=== PATIENT | male | born 1995 | race Caucasian/White ===

== ENCOUNTER 2019-10-17 07:44 | Outpatient (CLI) | payer BC, SELFPAY ==
--- NOTE | ~2019-10-17 | MR_ITS ---
EXAMINATION: MR clavicle LT wo con DATE: 10/17/2019 08:53 INDICATION: Left clavicle pain. TECHNIQUE: Magnetic resonance imaging (MRI) of the left clavicle was performed without intravenous co ntrast. Sequences included axial, coronal, and sagittal T1-weighted FSE, axial and coronal T2-weighte d FS FSE, and sagittal STIR FSE. COMPARISON: Left clavicle MRI 12/16/2018, left shoulder radiographs 08/16/2018 FINDINGS: Bone alignment is normal. No fracture. Joint spaces are normal. There is no abnormal soft t issue mass. IMPRESSION: 1. Normal left clavicle. Reviewed, dictated and finalized at location A. IMPRESSION: 1. Normal left clavicle.
== END 2019-10-17 07:45 | disposition home or self-care (01) ==
PROVIDERS: PCP Internal Medicine; Visit Provider Orthopaedic Surgery
DX: M25.512 Pain in left shoulder (principal)
CPT/HCPCS: 73218

== ENCOUNTER 2019-10-24 08:00 | Outpatient (RCR) | payer BC, SELFPAY ==
--- NOTE | 2019-10-24 12:41 | PTOPEVAL ---
Thank you for referring this patient to [facility]. Please review, sign, date and return this plan of care RAVI. I agree with and certify that the following plan of care is medically necessary. Referring Physician Date Admitting Provider: Attending Provider: Rancho Ellison MD Referring Provider: *PT Outpatient Evaluation Start: 10/24/19 08:03 Freq: Status: Active Protocol: Document 10/24/19 08:00 Kena (Rec: 10/24/19 08:56 [facility] [id number]) Therapy Assessment Status Assessment Status Assessment Status Evaluation Evaluation Information Problem Diagnosis L shoulder pain Onset Additional Evaluation Detail quick dash = Subjective Information patient reports he had a Query Text:As Reported By [facility]/ [facility] years [facility]. he reports he ws told to rest for 8 months by his MD. he reports he coming back to skilled PT now to improve his L shoulder strength and functional lifting. he reports he is not having pain, but is looking to regain his normal strength and movement of the L shoulder . 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 he reports he has been off for several months. he reports he would like to get back to lifting ravi. Pain Assessment Timing of Pain Assessment Timing of Pain Assessment Assessment Pain Scale Pain Scale Used Numeric (1 - 10) Self Report Pain Assessment Left Shoulder(s) Reported Pain Level 0 Current Pain Intensity 0 Lowest Pain Intensity 0 Greatest Pain Intensity 0 Pain Score Pain Score 0: Self Report Upper Extremity Range of Motion General Upper Extremity Range of Motion Reason Not Measured WNL/Left,WNL/Right Cervical and Lumbar Muscle Testing Lumbar Strength Lumbar Functional Strength Comments 30 second plank hold, but patient presents with worsening bilateral scapular winging. Upper Extremity Muscle Strength Testing Scapular/Shoulder Bilateral Shoulder Flexion Strength 4 Good Shoulder Extension Strength 5 Normal Shoulder Abduction Strength 5 Normal Shoulder Medial Rotation Strength
== END 2019-10-24 14:31 | disposition home or self-care (01) ==
LOC: CHSPT 08:00
PROVIDERS: PCP Internal Medicine; Visit Provider Orthopaedic Surgery
DX: M75.42 Impingement syndrome of left shoulder (principal)
CPT/HCPCS: 97110; 97161

== ENCOUNTER 2019-12-06 13:06 | Emergency (ER) | payer BC, SELFPAY ==
[2019-12-06] VITALS (7 sets, daily range): BP systolic 100–125; BP diastolic 59–82; PULSE 63–80; RESP 12–18; TEMP 36.4–37.1; O2SAT 97–100
--- NOTE | 2019-12-06 13:24 | ED.ANIMALBIT ---
HPI - Animal Bite General Chief Complaint: Animal Bite Stated Complaint: bit by a snake Time Seen by Provider: 12/06/19 13:24 Source: patient Mode of arrival: ambulatory Limitations: no limitations History of Present Illness HPI narrative: Previously were 24-year-old man comes in today complaining of wound on his right wrist which resembles a snake bite. 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 He did not see a snack today with 2 hours after he was out of the tree he noticed that he had 2 puncture wounds on his radial right forearm with some surrounding erythema. He states he has some mild numbness just distal to the wound on the dorsum of his right hand And felt lightheaded briefly at home, but no other symptoms. he denies fever, shortness of breath, cough, other rash, muscle spasms, joint pain, mental status changes or confusion, headache, nausea, vomiting, difficulty breathing, or bruising. complaint: animal bite Onset (ago): hour(s) (2) Animal: snake Description of animal: wild animal Mechanism: bite Location - Extremities: Right: forearm Context: unprovoked Associated symptoms: numbness Related Data Home Medications Medication Instructions Recorded Confirmed No Home Medications 12/06/19 12/06/19 Allergies Allergy/AdvReac Type Severity Reaction Status Date / Time No Known Allergies Allergy Verified 12/06/19 14:54 Review of Systems Constitutional: Constitutional: Denies chills, Denies fever(s) and Denies weakness Eyes: Eyes: Denies change in vision and Denies photophobia ENT: Denies dysphagia, Denies nasal congestion and Denies sore throat Cardiovascular: Cardiovascular: Denies chest pain, Denies rapid heart rate and Denies radiating jaw, neck or arm pain Respiratory: Respiratory: Denies chest congestion, Denies cough, Denies dyspnea and Denies wheezing Gastrointestinal: Gastrointestinal: Denies abdominal pain, Denies diarrhea, Denies nausea and Denies vomiting Genitourinary: Genitourinary: Denies hematuria, Denies dysuria and Denies urinary frequency Musculoskeletal: Musculoskeletal: Denies back pain, Denies myalgias, Denies arthralgias, Denies joint swelling and Denies muscle cramps Integumentary/Breasts: Skin/Breast: Reports as per HPI, Denies pruritus, Reports erythema and Denies rash Neurologic: Denies confusion, Denies vertigo, Reports dizziness, Denies syncope, Denies headache(s), Denies focal weakness and Denies weakness Psychiatric: Psychiatric: Denies anxiety and Denies depression Endocrine: Endocrine: Denies polydipsia and Denies polyuria Hematologic/Lymphatic: Hematologic/Lymphatic: Denies easy bleeding and Denies easy bruising Allergic/Immunologic: Allergic/Immunologic: Denies lip swelling, Denies throat swelling and Denies tongue swelling [facility] Social History Social History Smoking status: Never smoker Substance use: never Living arrangements: with family Occupation/Education: occupation 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 Exam Const: General: healthy appearing, no acute distress and alert Orientation/consciousness: patient oriented x3 Limitations: no limitations HENMT: Ears: external ears normal, EAC's normal and TM abnormal Mouth: Yes Normal oral and palatal mucosa present and Yes moist mucous membranes Throat: posterior oropharynx normal and uvula midline Eyes: Conjunctivae: conjunctivae normal Pupils: Equal, round and reactive pupils present EOM: EOMs intact bilaterally Resp: Effort & Inspection: normal respiratory effort and not labored Auscultation: clear to auscultation bilaterally, no rales, no rhonchi and no wheezes Cardio: Rate: regular rate Rhythm: regular rhythm Heart sounds: no murmurs GI: Inspection: non-distended GI Palp: Yes Soft to palpation, No Tenderness to palpation present (GI), No Guarding due to palpation
[2019-12-06] MEDS: TETANUS,DIPHTHERIA,AC PERTUSSIS ADULT 0.5 ML (ADACEL) IM (13:45)
[2019-12-06] MEDS: SODIUM CHLORIDE 0.9% IV 1,000 ML 999 ML IV CONT (13:45)
[2019-12-06 13:51] LABS: Add Urine Microscopic? NO; Appearance Urine Clear (Clear); Basophils Absolute Auto 0.05 K/mm3 (0.00-0.10); Basophils Percent Auto 0.7 % (0.0-1.0); Bilirubin Urine Negative (Negative); Blood Urine Negative (Negative); Color Urine Yellow (Yellow); Eosinophils Absolute Auto 0.17 K/mm3 (0.02-0.50); Eosinophils Percent Auto 2.3 % (1.0-6.0); Glucose Urine UA Negative (Negative); Hematocrit 44.9 % (40.0-54.0); Hemoglobin 15.3 g/dL (14.0-18.0); Immature Granulocyte Absolute 0.03 K/mm3 (0.00-0.00); Immature Granulocyte Percent A 0.4 % (0.0-0.0); Ketones Urine Negative (Negative); Leukocyte Esterase Ur Negative (Negative); Lymphocytes Absolute Auto 1.55 K/mm3 (1.10-4.50); Mean Corpuscular HGB Conc 34.1 g/dL (32.0-36.0); Mean Corpuscular Hemoglobin 30.7 pg (27.0-31.0); Mean Corpuscular Volume 90.2 fL (78.0-102.0); Mean Platelet Volume 9.1 fl (8.7-11.0); Monocytes Absolute Auto 0.58 K/mm3 (0.10-0.90); Monocytes Percent Auto 7.8 % (2.0-11.0); Neutrophils Percent Auto 67.8 % (50.0-70.0); Nitrate Urine Negative (Negative); Platelet Count Result 243 K/mm3 (150-420); Protein Urine Negative (Negative); Red Blood Count 4.98 M/mm3 (4.70-6.10); Specific Grav Ur 1.015 (1.010-1.020); Urobilinogen Urine 0.2 mg/dL (0.2-1.0); White Blood Count 7.4 K/mm3 (4.8-10.8)
[2019-12-06 14:03] LABS: Alanine Aminotransferase 36 U/L (16-63); Alkaline Phosphatase 104 U/L (46-116); Anion Gap 10.7 mmol/L (7-16); Aspartate Amino Transferase 28 U/L (15-37); Bilirubin,Total 0.7 mg/dL (0.00-1.00); Blood Urea Nitrogen 14 mg/dL (7-18); Calcium 8.9 mg/dL (8.5-10.1); Carbon Dioxide 32 mmol/L (21-32); Chloride 103 mmol/L (98-108); Creatine Kinase 497 U/L (39-308); D Dimer 0.19 mg/L (0.19-0.50); Estimated CRCL calculation 124 ml/min; Estimated Glomerular Filt Rate > 60; Glucose 74 mg/dL (70-99); Osmolality Calculated 293 mOsm/kg (285-295); Partial Thromboplastin Time 27.2 SEC (22.3-31.6); Potassium 3.7 mmol/L (3.5-5.1); Prothrombin Time 10.3 Seconds (9.64-11.0); Sodium 142 mmol/L (136-145); Total Protein 7.2 g/dL (6.4-8.2)
[2019-12-06] MEDS: ONDANSETRON INJ 4 MG/2 ML VIAL IV PUSH (14:34)
--- NOTE | 2019-12-06 14:51 | PC.NURSE ---
PT TO BE TAKEN TO ROOM 204 BY WHEELCHAIR ER HOLD. TELEPHONE REPORT PROVIDED TO RAINE MATTA.
--- NOTE | 2019-12-06 15:12 | PC.NURSE ---
Patient brought to floor via wheelchair from ER. Alert and [id number] x4. Pleasant and talkative. Potential snake bite site observed. x2 puncture wounds to righrt forearm with small amount of redness aroiund site. Area marked off with marker to monitor for increased redness. Area still within marked area. Rasjh to wrist area. Denies pain at this time. Pateint given ice water, turkey sandwich, and fruit cup.
--- NOTE | 2019-12-06 15:53 | PC.NURSE ---
Area with x2 puncture wounds with redness around the site. Area still within the markings. Denies pain at site. No drainage noted.
--- NOTE | 2019-12-06 15:56 | PC.NURSE ---
1520: Site remains unchanged. Denies pain.
--- NOTE | 2019-12-06 15:57 | PCDIET ---
1540: No changes to site. 2 puncture wounds without drainage. redness remains within the marked line.
--- NOTE | 2019-12-06 16:32 | PC.NURSE ---
1620 Patient resting in bed. Area remains within the marked areas. Wound without drainage.
--- NOTE | 2019-12-06 17:26 | PC.NURSE ---
1700 patient sat up at side of bed for supper. Vitals signs stable. Area to right forearm smaller in size. No longer fills the marked area. Patient denies pain, drainage. Patient alert and oriented x4. Able to make needs known.Denies dizziness, nausea. Call light and belongings in reach.
--- NOTE | 2019-12-06 17:38 | ECG_ITS ---
Measurements Intervals Ballinger Rate: 50 P: -31 MD: 153 QRS: 71 QRSD: 118 T: 53 QT: 396 QTc: 364 Interpretive Statements SINUS OR ECTOPIC ATRIAL BRADYCARDIA INTRAVENTRICULAR CONDUCTION DELAY BORDERLINE ECG Electronically Signed On 12-06-2019 18:16:17 CDT by Angelo Ramsey D.O.
--- NOTE | 2019-12-06 18:02 | PC.NURSE ---
1800 Patient ate 100% of supper. Denies nausea. Wound to right forearm unchanged. Puncture wounds without drainage. 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 Pateint afebrile. Sitting on side of bed talking on phone.
--- NOTE | 2019-12-06 18:20 | PC.NURSE ---
1819 Wound remains unchanged. Puncture sites without drainage. Red area smaller, no longer reaches marked area. Pateint denies pain.
--- NOTE | 2019-12-06 18:39 | PC.NURSE ---
1840 Patient alert and oriented x4. Puncture wounds without drainage. Redness and edema around puncture wounds receding. Patient denies pain or nausea.
--- NOTE | 2019-12-06 19:12 | PC.NURSE ---
1900 vital signs wnl. Patient alert and oriented x4. Redness receding with puncture wounds showing no change. Lab here to draw lab . Patient tolerated well. Resting in bed with call light and belongings within reach.
[2019-12-06 19:24] LABS: Creatine Kinase 421 U/L (39-308)
--- NOTE | 2019-12-06 19:29 | PC.NURSE ---
MD notified that patient's CK is at 421 and that site has improved. MD to come up to see patient.
== END 2019-12-06 19:45 | disposition home or self-care (01) ==
PROVIDERS: Emergency Provider Emergency Medicine; PCP Internal Medicine
DX: S61.551A Open bite of right wrist, initial encounter (principal); W64.XXXA Exposure to other animate mechanical forces, initial encounter
CPT/HCPCS: 36415; 80053; 81003; 82550; 85025; 85380; 85384; 85610; 85730; 90471; 90715; 93005; 96361; 96374; 99282; 99284; J2405; J7030

== ENCOUNTER 2021-07-10 12:09 | Outpatient (CLI) | payer BC, SELFPAY ==
[2021-07-10 13:02] LABS: Influenza A QL RT-PCR Positive (Negative); Influenza B QL RT-PCR Negative (Negative); SARS-CoV-2 RNA PCR Negative (Negative)
== END 2021-07-10 12:10 | disposition home or self-care (01) ==
LOC: CHSLAB 12:13
PROVIDERS: PCP Internal Medicine; Visit Provider Internal Medicine
DX: R05.9 Cough, unspecified (principal); R11.0 Nausea; J02.9 Acute pharyngitis, unspecified; Z20.822 Contact with and (suspected) exposure to COVID-19
CPT/HCPCS: 87502; C9803; U0003; U0005

== ENCOUNTER 2022-01-11 07:03 | Emergency (ER) | payer BC, SELFPAY ==
--- NOTE | ~2022-01-11 | XR_ITS ---
EXAMINATION: XR chest 2V DATE: 01/11/2022 07:35 INDICATION: Chest pain TECHNIQUE: 0733 hours COMPARISON: 12/10/2010 FINDINGS: The lungs are free of acute opacities. There is no pleural effusion or pneumothorax. The ca rdiomediastinal silhouette is normal. The visualized bones and soft tissues are unremarkable. IMPRESSION: 1. No acute cardiopulmonary abnormality. Reviewed, dictated and finalized at location A.
[2022-01-11 07:10] VITALS: BP 125/65; PULSE 56; RESP 18; TEMP 35.7; O2SAT 100
--- NOTE | 2022-01-11 08:03 | ED.GENADULT ---
HPI - General Adult General Chief complaint: Unspecified Stated complaint: Hiccups Time Seen by Provider: 01/11/22 07:21 History of Present Illness HPI narrative: 26-year-old male presenting to the emergency department for evaluation of hiccups that have been persistent for the last 48 hours. Patient denies any recent illnesses cough cold fevers falls or injuries. Patient denies any associated chest pain or shortness of breath. Patient denies any associate abdominal pain. Patient does report some bilateral throat pain from the hiccups. Related Data Allergies Allergy/AdvReac Type Severity Reaction Status Date / Time No Known Allergies Allergy Verified 01/11/22 07:12 Review of Systems Review of Systems: CONSTITUTIONAL: Denies fever, chills, or sweats. EYES: Denies visual changes, redness, or discharge. ENT: Denies rhinorrhea, congestion, sore throat from hiccups CARDIOVASCULAR: Denies chest pain, palpitations, or edema. RESPIRATORY: Denies cough or dyspnea. GASTROINTESTINAL: Denies abdominal pain, nausea, vomiting, or diarrhea. GENITOURINARY: Denies dysuria or hematuria. SKIN: Denies rash or itching. MUSCULOSKELETAL: Denies back pain, joint pain, or myalgia. NEUROLOGIC: Denies headache, numbness, or weakness. 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 HEAD: normocephalic, atraumatic. EYES: PERRLA/EOMI, conjunctivae clear. NOSE: Normal no drainage EARS:TMS clear with good light reflex. THROAT: Pharynx clear, no exudate. NECK: Supple. No adenopathy, no masses. RESPIRATORY: Airway patent, respirations nonlabored. Clear to auscultation bilaterally, no rales, rhonchi, wheezing. CARDIOVASCULAR: Regular rate and rhythm without murmurs rubs or gallops. ABDOMINAL: Soft, nontender, nondistended, normal bowel sounds MUSCULOSKELETAL: Moves all extremities. Strength/ROM intact, No edema, No calf tenderness. NEURO: Alert. Cranial nerves II through XII intact. Grossly intact SKIN: Warm, dry. Normal Color PSYCHIATRIC: Normal affect/mood. Course Vital Signs Vital signs: Vital Signs Temperature 96.3 F L 01/11/22 07:10 Pulse Rate 56 L 01/11/22 07:10 Respiratory Rate 18 01/11/22 07:10 Blood Pressure 125/65 01/11/22 07:10 Pulse Oximetry 100 01/11/22 07:10 Oxygen Delivery Room Air 01/11/22 07:10 Temperature 96.3 F L 01/11/22 07:10 Pulse Rate 56 L 01/11/22 07:10 Respiratory Rate 18 01/11/22 07:10 Blood Pressure 125/65 01/11/22 07:10 Pulse Oximetry 100 01/11/22 07:10 Oxygen Delivery Room Air 01/11/22 07:10 Medical Decision Making Vital Signs Vital Signs: Vital Signs Temperature 96.3 F L 01/11/22 07:10 Pulse Rate 56 L 01/11/22 07:10 Respiratory Rate 18 01/11/22 07:10 Blood Pressure 125/65 01/11/22 07:10 Pulse Oximetry 100 01/11/22 07:10 Oxygen Delivery Room Air 01/11/22 07:10 Temperature 96.3 F L 01/11/22 07:10 Pulse Rate 56 L 01/11/22 07:10 Respiratory Rate 18 01/11/22 07:10 Blood Pressure 125/65 01/11/22 07:10 Pulse Oximetry 100 01/11/22 07:10 Oxygen Delivery Room Air 01/11/22 07:10 Imaging Data Radiologist's impression: Impressions Chest X-Ray 01/11/22 07:38 IMPRESSION: 1. No acute cardiopulmonary abnormality. Discharge Plan Discharge Clinical Impression: Hiccups Patient Disposition: Home, Self-Care Condition: Stable Instructions: Antibiotic Form, Hiccups (ED) Additional Instructions: Have close follow-up with your primary care physician. If you have any worsening symptoms then please call or return to the emergency department. Prescriptions: New chlorpromazine 25 mg tablet 25 mg PO Q8H PRN (Reason: hiccups) Qty: 14 0RF Follow-up/Referrals: Harry
[2022-01-11] MEDS: HYDROcodone/acetaminophen (*CRX) 5-325 MG TABLET 1 TAB PO (08:09)
[2022-01-11] MEDS: chlorproMAZINE HCL 25 MG TABLET PO (08:09)
== END 2022-01-11 09:31 | disposition home or self-care (01) ==
PROVIDERS: Emergency Provider Emergency Medicine; PCP Internal Medicine
DX: R06.6 Hiccough (principal)
CPT/HCPCS: 71046; 99283; A9270

== ENCOUNTER 2024-07-14 11:34 | Emergency (ER) | payer SELFPAY ==
[2024-07-14 11:46] VITALS: BP 121/63; PULSE 77; RESP 20; TEMP 37.2; O2SAT 97
--- NOTE | 2024-07-14 12:17 | ED_ITS ---
HPI - URI/Sore Throat General Chief Complaint: Upper Respiratory Infection Stated Complaint: cold/flu symptoms Time Seen by Provider: 07/14/24 12:17 Source: patient and RN notes reviewed Mode of arrival: ambulatory Limitations: no limitations History of Present Illness HPI Narrative: 29-year-old male presents with concern for 2 and half week history of sinus congestion, sinus pain, cough. Reports cough. Reports he had fever at the beginning of his symptoms. MD elicited complaint: nasal congestion Related Data Allergies Allergy/AdvReac Type Severity Reaction Status Date / Time No Known Allergies Allergy Verified 01/11/22 07:12 Review of Systems Review of Systems: CONSTITUTIONAL: Denies malaise, chills, sweats, or current fever. EYES: Denies visual changes, redness, or discharge. ENT: Reports rhinorrhea, congestion, sinus pain. She otalgia and sore throat. CARDIOVASCULAR: Denies chest pain, palpitations, or edema. RESPIRATORY: Reports cough. Denies dyspnea. GASTROINTESTINAL: Denies abdominal pain, nausea, vomiting, diarrhea SKIN: Denies rash or itching. MUSCULOSKELETAL: Denies myalgia. NEUROLOGIC: Denies headache. 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 There is no relevant family history pertinent to the presenting complaint Exam Narrative: GENERAL: Well-appearing, well-nourished, and in no acute distress. HEAD: Normocephalic EYES: PERRLA, conjunctivae clear ENT: Nares clear, turbinates edematous and erythematous. Mucous membranes moist. TM pearly singh with dull light reflex bilaterally; no tragal tenderness. Oropharynx not erythematous without lesions. Tonsils not enlarged and without exudate, no drooling, no hoarseness, no trismus, uvula midline. NECK: Supple. No lymphadenopathy CHEST: Clear to auscultation, breath sounds equal. No wheezing, rhonchi, rales, or stridor. No respiratory distress, speaks in full sentences. HEART: Regular rate and rhythm. No murmur heard. SKIN: Warm, dry, no rash. NEURO: Alert and oriented x3. PSYCH: Normal mood and affect Course Course Emergency Course: Patient is aware of diagnosis, understands and agrees to treatment plan. Anticipatory guidance given. Patient agrees to follow-up as directed and is aware of reasons to seek care at the emergency department. Portions of this record may have been created with voice recognition software Level of Care: Express Care Visit Vital Signs Vital signs: Vital Signs Temperature 99 F 07/14/24 11:46 Pulse Rate 77 07/14/24 11:46 Respiratory Rate 20 07/14/24 11:46 Blood Pressure 121/63 07/14/24 11:46 Pulse Oximetry 97 07/14/24 11:46 Oxygen Delivery Room Air 07/14/24 11:46 Temperature 99 F 07/14/24 11:46 Pulse Rate 77 07/14/24 11:46 Respiratory Rate 20 07/14/24 11:46 Blood Pressure 121/63 07/14/24 11:46 Pulse Oximetry 97 07/14/24 11:46 Oxygen Delivery Room Air 07/14/24 11:46 Reviewed. MDM - URI/Sore Throat MDM Narrative Medical decision making narrative: Differential diagnosis considered: Dhaliwal virus, strep pharyngitis, allergic rhinitis, upper respiratory tract infection, sinusitis, rhinosinusitis, nasopharyngitis. viral pharyngitis, otitis media, otitis externa, pneumonia, bronchitis, viral cough syndrome, viral syndrome, and influenza. Exam findings show no acute concerns or changes; patient is non-toxic appearing and is in no distress. Patient is appropriate for outpatient treatment and follow-up. Lab Data Attestation: I reviewed the patient's lab results. Critical Care Time Critical Care Time Critical Care Time: No Discharge Plan Discharge Clinical Impression: Acute bacterial sinusitis Patient Disposition: Home, Self-Care Condition: Stable Instructions: Antibiotic Form, Sinusitis (ED) Additional Instructions: Take medication as prescribed Nonprescription pain medications, such as acetaminophen (eg, Tylenol) or ibupro fen (eg, Motrin, Advil), are recommended for pain. Flushing the nose and sinuses with a saline solution several times per day has been proven to decrease pain associated with congestion and shorten the duration of symptoms. Nasal steroids (such as Flonase, 2 sprays in each nostril daily) can help to reduce swelling inside the nose, usually within two to three days. These drugs have few side effects and relieve symptoms in most people. Oral decongestants (pseudoephedrine and phenylephrine) may be helpful if you have associated symptoms of ear pain or fullness. Nasal decongestant sprays, including oxymetazoline (Afrin) and phenylephrine (Deandre-Synephrine), can be used to temporarily treat congestion. However, these sprays should not be used for more than two to three days due to the risk of rebound congestion (when the nose becomes congested constantly unless the medication is used repeatedly), possible addiction, and long-term consequences of frequent use, including persistent nasal dryness and crusting, which is very difficult to treat once it has developed. Medications to thin secretions (such as guaifenesin) may help to clear mucus. Please follow-up with your primary care doctor in the next 1-2 days. If you cannot follow-up with your primary care doctor please go to the ED for any urgent issues. If you have any worsening of symptoms or any other concerns please go to the ED immediately. Prescriptions: New methylprednisolone [Medrol ([place])] 4 mg tablets,dose pack See Rx Instructions .ROUTE .COMPLEX Qty: 21 0RF Rx Instructions: orally per package directions amoxicillin-pot clavulanate 875-125 mg tablet 1 tablet PO Q12H 10 Days Qty: 20 0RF Follow-up/Referrals: PHYSICIAN,MERCHANDISE PLANNING MANAGER [Primary Care Provider] - Time of Disposition: 12:24
== END 2024-07-14 12:35 | disposition home or self-care (01) ==
PROVIDERS: Emergency Provider Nurse Practitioner
DX: J01.90 Acute sinusitis, unspecified (principal)
CPT/HCPCS: 99213; G0463

== ENCOUNTER 2024-07-29 19:57 | Emergency (ER) | payer OTHER, SELFPAY ==
--- NOTE | 2024-07-29 20:06 | ED.EYEPROB ---
HPI - Eye Problem General Chief complaint: Eye Problems Stated complaint: Left Eye Injury Time Seen by Provider: 07/29/24 20:05 Source: patient, RN notes reviewed and old records reviewed Mode of arrival: ambulatory Limitations: no limitations History of Present Illness HPI Narrative: 29 year old male accompanied by significant other with complaints of redness and irritation to his left eye. he state that his left eye started hurting and he tried to take his left contact out and it started hurting worse, Patient did take the left contact out. He thinks maybe he scratched it when he was taking contact out. Denies any trauma to his eye or known foreign body. Sclera is red on inner aspect of his left eye and is watering. This occurred about an hour prior to arrival. chief complaint: eye redness and other (irritation feeling and some discomfort.) Onset (ago): hour(s) (within past 1 hour prior to arrival in clinic) Onset description: gradual (increase in symptoms) Duration: constant Location: left eye Eye Symptoms: redness and other (watering and irritation) Severity: moderate Treatments Prior to Arrival: removed contact lens Related Data Allergies Allergy/AdvReac Type Severity Reaction Status Date / Time No Known Allergies Allergy Verified 07/29/24 19:59 Review of Systems Review of Systems: CONSTITUTIONAL: Denies fever, chills, or sweats. EYES: Denies visual changes. Reports redness,, irritation, increased watering left eye ENT: Denies rhinorrhea, congestion, sore throat, or otalgia. CARDIOVASCULAR: Denies chest pain, palpitations, or edema. RESPIRATORY: Denies cough or dyspnea. SKIN: Denies rash or itching. 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 There is no relevant family history pertinent to the presenting complaint Exam Narrative: GENERAL: Well-appearing, well-nourished, and in no acute distress. HEAD: Normocephalic, atraumatic. EYES: PERRLA and EOMI. Upper and lower eyelids unremarkable. No periorbital cellulitis noted. Sclera injected left eye no drainage, conjunctiva clear, irritation feeling and increased watering no visual changes visual acuity right eye with contact lens in place 20/25, no contact left eye 20/70 ENT: Nares clear, no rhinorrhea or epistaxis. Mucous membranes moist. NECK: Supple. no lymphadenopathy CHEST: Clear to auscultation. No respiratory distress. HEART: Regular rate and rhythm. No murmur heard. Normal peripheral pulses. SKIN: Warm, dry, no rash. NEURO: No focal deficits. Alert and oriented x3. Course Course Emergency Course: Patient is aware of diagnosis, understands and agrees to treatment plan. Anticipatory guidance given. Patient agrees to follow-up as directed and is aware of reasons to seek care at the emergency department. Portions of this record may have been created with voice recognition software Level of Care: Express Care Visit Vital Signs Vital signs: Vital Signs Temperature 36.9 C 07/29/24 20:08 Pulse Rate 60 07/29/24 20:08 Respiratory Rate 18 07/29/24 20:08 Blood Pressure 109/62 07/29/24 20:08 Pulse Oximetry 98 07/29/24 20:08 Oxygen Delivery Room Air 07/29/24 20:08 Temperature 36.9 C 07/29/24 20:08 Pulse Rate 60 07/29/24 20:08 Respiratory Rate 18 07/29/24 20:08 Blood Pressure 109/62 07/29/24 20:08 Pulse Oximetry 98 07/29/24 20:08 Oxygen Delivery Room Air 07/29/24 20:08 Reviewed Procedures FB Removal Eye Foreign Body #1: Foreign Body Removal Date: 07/29/24 Foreign Body Removal Time: 20:12 Time Out performed: Yes Location: eye (L) Topical anesthetic used: tetracaine (tetracaine 0.5% 2 drops) Foreign body: other (none) Evidence of corneal penetration: No Technique: irrigation, eye wash bottle and cotton tip swab Procedure performed under: direct visualization with magnification and other (gibbons lamp) Post-procedure medication: topical anesthetic (tetracaine 0.5 % 2 drops) Patient tolerated procedure: well Complications: other (none) Foreign Body Removal Narrative: Patient tolerated procedure well Left eye localized with Tetracaine 0.5% 2 drops, examined with magnification and no foreign body noted,cotton tip applicator under eye lids. Eye stained with Fluorescein stain and examined with gibbons lamp with small scratch on cornea at 6 o'clock and small abrasion on inner sclera noted. Patient's left eye rinsed with eye wash solution till dye removed. and 2 drops of tetracaine 0.5% applied for comfort measure. MDM - Eye Problem MDM Narrative Medical decision making narrative: Consideration of the following conditions may be warranted for the presenting problem, they are not final diagnoses: Bacterial conjunctivitis, allergic conjunctivitis, viral conjunctivitis, foreign body, blepharitis, chalazion, hordeolum, corneal abrasion.? Exam findings show no acute concerns or changes; patient is non-toxic appearing and is in no distress.? Patient is appropriate for outpatient treatment and follow-up. Differential Diagnosis Differential diagnosis: Likely corneal abrasion, subconjunctival hemorrhage and other (sclera abrasion) Medical Records Attestation: I reviewed the patient's medical records. Critical Care Time Critical Care Time Critical Care Time: No Discharge Plan Discharge Clinical Impression: Corneal abrasion Qualifiers: Encounter type: initial encounter Laterality: left Qualified Code(s): S05.02XA - Injury of conjunctiva and corneal abrasion without foreign body, left eye, initial encounter Abrasion of sclera of left eye Qualifiers: Encounter type: initial encounter Qualified Code(s): S05.8X2A - Other injuries of left eye and orbit, initial encounter Patient Disposition: Home, Self-Care Condition: Stable Instructions: Corneal Abrasion (ED), How to Use Eye Drops (ED) Additional Instructions: Cold compresses to the eyes for comfort May need warm compresses to remove debris in the morning When cleaning the eyes used a washcloth in one direction then change washcloths or use a cotton ball in one direction and then his cotton balls Eyedrops as directed--may be more soothing if left in the refrigerator Do not share medicine--do not touch the eye with the medicine Tylenol or ibuprofen for pain Avoid screen time--television, computer, tablet or phone. Also no reading or driving Follow-up with PCP or sports recruiter as directed if no improvement in 48 hours Don't wear contact to left eye till you have completed all the eye drops as ordered Patient Language: [place] Prescriptions: New ofloxacin 0.3 % drops See Rx Instructions .ROUTE .COMPLEX Qty: 10 0RF Rx Instructions: put 1-2 drps into affected eye(s) every 2-4 h x 2 days, then 1-2 drps 4 times/day days 3-7 Follow-up/Referrals: Chapo Patel MD [Primary Care Provider] - Time of Disposition: 20:22 Quality [place] Coma Scale Eyes: Open Verbal: Oriented and Alert Motor: Follows Commands Nolberto Coma Total Score: 15
[2024-07-29 20:08] VITALS: BP 109/62; PULSE 60; RESP 18; TEMP 36.9; O2SAT 98
== END 2024-07-29 20:38 | disposition home or self-care (01) ==
PROVIDERS: Emergency Provider Registered Nurse; PCP Internal Medicine
DX: S05.02XA Injury of conjunctiva and corneal abrasion without foreign body, left eye, initial encounter (principal); S05.8X2A Other injuries of left eye and orbit, initial encounter; W44.F3XA Food entering into or through a natural orifice, initial encounter
CPT/HCPCS: 65205; 99213; A9270; G0463